=== PATIENT | male | born 1940 ===

== ENCOUNTER 2024-07-28 09:04 | Day surgery (SDC) | payer MEDICARE, BC ==
[~2024-07-28 09:04] MED LIST: Brimonidine 0.2% Ophth Soln 5 ML Bottle ONE; Dexamethasone/Neomycin/Polymyxin B Ophth Oint 3.5 GM Tube ONE; Lidocaine 1% 2 ML ONE; Phenyleprhine/Ketorolac 4 ML Vial ONE; Povidone-Iodine 5% Sterile Ophth Soln 30 ML Bottle ONE; Proparacaine 0.5% Ophth Soln 15 ML Bottle ONE
[2024-07-28] MEDS: Tropicamide 1% Ophth Soln 15 ML Bottle EYELF SCH (09:36)
[2024-07-28] MEDS: Phenylephrine 2.5% Ophth Soln 2 ML Bot EYELF SCH (09:36)
[2024-07-28] MEDS: Cyclopentolate 1% Opth Soln 2 ML Bottle EYELF SCH (09:37)
[2024-07-28] MEDS ORDERED: fentaNYL 100 MCG/2 ML SDV ONE (09:58)
[2024-07-28] MEDS: Moxifloxacin 0.5% Ophth Soln 3 ML Bottle EYELF ONE ×2 (09:58→11:03)
[2024-07-28] MEDS ORDERED: Midazolam 1 MG/ML 2 ML SDV ONE (09:58)
[2024-07-28] MEDS ORDERED: ceFAZolin 500 MG Vial ONE (10:50)
[2024-07-28] MEDS: Povidone-Iodine 5% Sterile Ophth Soln 30 ML Bottle EYELF ONE (11:02)
[2024-07-28] MEDS: Phenyleprhine/Ketorolac 4 ML Vial IO ONE (11:03)
[2024-07-28] MEDS: Balanced Salt Solution Ophth Irrig 500 ML Bottle IOCULAR ONE (11:03)
[2024-07-28] MEDS: Chondroitin Sulfate/Hyaluronate Sodium Ophth Inj 0.5 ML Syringe IOCULAR ONE (11:04)
[2024-07-28] MEDS: Lidocaine 1% PF 2 ML SDV INFILT ONE (11:04)
[2024-07-28] MEDS: Dexamethasone/Neomycin/Polymyxin B Ophth Oint 3.5 GM Tube EYELF ONE (11:04)
[2024-07-28] MEDS: Brimonidine 0.2% Ophth Soln 5 ML Bottle EYELF ONE (11:04)
[2024-07-28] MEDS: acetaZOLAMIDE 500 MG Cap.ER PO ONE (11:29)
[2024-07-28 11:33] VITALS: BP 149/70; PULSE 72
== END 2024-07-28 12:14 | disposition home or self-care (01) ==
LOC: VM.SDS 09:04
PROVIDERS: ATTEND Ophthalmology
DX: H25.813 Combined forms of age-related cataract, bilateral (principal); H18.413 Arcus senilis, bilateral; I48.91 Unspecified atrial fibrillation; I50.9 Heart failure, unspecified; F32.A Depression, unspecified; N40.0 Benign prostatic hyperplasia without lower urinary tract symptoms; Z79.899 Other long term (current) drug therapy
CPT/HCPCS: 00142; 99100; A9270-GY; J0690; J1097; J2003; J2250; J3010; J3490